=== PATIENT | female | born 1985 | race Caucasian/White ===

== ENCOUNTER → 2016-12-05 | Outpatient (CLI) | payer OTHER ==
--- NOTE | 2016-12-05 10:20 | KCIC ---
PROCEDURE Left foot, three views. HISTORY Pain. FINDINGS Frontal, lateral and oblique views of the left foot are obtained. There is no fracture, dislocation or subluxation. There is a small plantar spur. IMPRESSION No acute osseous finding. Electronically signed by: Abigail Norton (Dec 05, 2016 10:18:45)
== END | disposition home or self-care (01) ==
LOC: KCIC 09:37
PROVIDERS: ATTEND Nurse Practitioner Family
DX: M79.672 Pain in left foot (principal)
CPT/HCPCS: 73630

== ENCOUNTER → 2018-04-18 | Outpatient (CLI) | payer OTHER | END | disposition home or self-care (01) | LOC: KCIC 08:43 | DX: M25.571 Pain in right ankle and joints of right foot (principal); M79.89 Other specified soft tissue disorders | CPT/HCPCS: 73610; 73630 ==